=== PATIENT | female | born 1975 | race Caucasian/White ===

== ENCOUNTER → 2016-11-20 | Outpatient (CLI) | payer SELFPAY ==
[~2016-11-20] MED LIST: CLARITIN10 M3 PO; HEARTBURN150 MG PO; LEVOTHYROXINE150 MCG PO; TUMS500 MG PO
== END | disposition home or self-care (01) ==
LOC: CBAR 16:18
DX: Z01.818 Encounter for other preprocedural examination (principal); E66.9 Obesity, unspecified
CPT/HCPCS: G0463

== ENCOUNTER → 2016-12-13 | Outpatient (CLI) | payer SELFPAY | END | disposition home or self-care (01) | LOC: CBAR 07:58 | DX: Z01.818 Encounter for other preprocedural examination (principal); E66.01 Morbid (severe) obesity due to excess calories | CPT/HCPCS: G0463 ==

== ENCOUNTER → 2017-01-08 | Outpatient (CLI) | payer SELFPAY | END | disposition home or self-care (01) | LOC: CBAR 15:42 | DX: Z01.818 Encounter for other preprocedural examination (principal); E66.01 Morbid (severe) obesity due to excess calories | CPT/HCPCS: G0463 ==

== ENCOUNTER → 2017-02-05 | Outpatient (CLI) | payer SELFPAY | END | disposition home or self-care (01) | LOC: CBAR 08:11 | DX: E66.01 Morbid (severe) obesity due to excess calories (principal) | CPT/HCPCS: G0463 ==

== ENCOUNTER → 2017-03-06 | Outpatient (CLI) | payer SELFPAY | END | disposition home or self-care (01) | LOC: CBAR 03-05 11:45 | DX: Z01.818 Encounter for other preprocedural examination (principal); E66.01 Morbid (severe) obesity due to excess calories | CPT/HCPCS: G0463 ==

== ENCOUNTER → 2017-04-02 | Outpatient (CLI) | payer SELFPAY | END | disposition home or self-care (01) | LOC: CBAR 06:15 | DX: Z01.818 Encounter for other preprocedural examination (principal); E66.01 Morbid (severe) obesity due to excess calories | CPT/HCPCS: G0463 ==

== ENCOUNTER → 2017-04-26 | Outpatient (CLI) | payer BC ==
--- NOTE | ~2017-04-26 | CR97 ---
[facility] A Service [facility] RADIOLOGY TEXT RESULTS PATIENT: ROBYN DAVIS LOCATION: [facility] : [birth year] UNIT #: [id number] AGE: [address]: Goyo Zheng III, MD SEX: F ORDER DR: [id number] [place] [id number] [facility]. [place], [place] [address] [id number] O MR#: [id number] Acc #: [id number] NAME: ROBYN DAVIS : 1975 SEX: F STUDY DATE/TIME: 04/26/2017 11:49 UNIT: [facility] ROOM: STUDY DESCRIPTION: CR Esophagram Attending Physician: Goyo Zheng III, M.D. Referring Physician: Goyo Zheng III, M.D. Ordering Physician: Goyo Zheng III, M.D. Primary Care Physician: Ramo Goldberg M.D. MEDICAL IMAGING REPORT This report is preliminary unless electronic signature is present EXAM Esophagram, 04/26/2017. INDICATIONS 42-year-old female presenting for preop evaluation for Lap-Band placement. Shortness of air. Morbid obesity. Symptoms began today. TECHNIQUE Spot fluoroscopic views of the esophagus were obtained in various projections after the patient ingested gas crystals and thick and thin liquid barium. COMPARISON We have no comparisons. FINDINGS Notes indicate 51 images from the procedure were saved to the [employer] system. 0.8 minutes of fluoroscopy time was used in the case. The esophagus demonstrates an unremarkable primary stripping wave. No significant secondary or tertiary contractions identified. No focal esophageal mass or mucosal abnormality. There is a small sliding hiatal hernia best demonstrated on prone oblique images. No significant associated reflux. IMPRESSION 1. Small sliding hiatal hernia without significant associated gastroesophageal reflux or reflux associated stricture. 2. The examination is otherwise negative. 3. Notes indicate 51 images were saved from the procedure to the [employer] system. 0.8 minutes of fluoroscopy time from the case noted. [facility] A Service [facility] RADIOLOGY TEXT RESULTS PATIENT: ROBYN DAVIS LOCATION: [facility] : 71 UNIT #: [id number] AGE: [address]: Goyo Zheng III, MD SEX: F ORDER DR: Dictated by... Derrick Baeza M.D. THIS IS AN ELECTRONICALLY VERIFIED REPORT Derrick Baeza M.D. at 04/29/2017 3:26 PM SMITHA/jamia TD: 04/26/2017 20:51 JOB #: [id number] MEDICAL IMAGING REPORT Page 1 of 1 COPY
--- NOTE | ~2017-04-26 | CR63 ---
[facility] A Service of [facility] & [facility] RADIOLOGY TEXT RESULTS PATIENT: ROBYN DAVIS A LOCATION: [facility] : 71 UNIT #: [id number] AGE: [address]: Goyo Zheng III, MD SEX: F ORDER DR: [id number] [facility] [address]. [place], [place] [address] [id number] O MR#: [id number] Acc #: [id number] NAME: ROBYN DAVIS : 1975 SEX: F STUDY DATE/TIME: 04/26/2017 8:36 UNIT: [facility] ROOM: STUDY DESCRIPTION: CR Chest 2 View Attending Physician: Goyo Zheng III, M.D. Referring Physician: Goyo Zheng III, M.D. Ordering Physician: Goyo Zheng III, M.D. Primary Care Physician: Ramo Goldberg M.D. MEDICAL IMAGING REPORT This report is preliminary unless electronic signature is present EXAM Chest, 04/26/2017, [facility]. HISTORY 42-year-old female preop clearance for laparoscopic adjustable gastric band placement and possible paraesophageal hernia repair. Short of air, morbid obesity. COMPARISON None FINDINGS Two-view chest demonstrates normal cardiac size and configuration. Hilar structures and mediastinal contours are preserved. Bilateral lungs are expanded and clear. IMPRESSION Negative chest. Large body habitus. Dictated by... Keyshawn Mata M.D. THIS IS AN ELECTRONICALLY VERIFIED REPORT Keyshawn Mata M.D. at 04/26/2017 1:56 PM CRISTINA/arlen TD: 04/26/2017 11:40 JOB #: [id number] MEDICAL IMAGING REPORT Page 1 of 1 COPY
--- NOTE | ~2017-04-26 | EKG ---
PATIENT: ORBYN DAVIS UNIT #: [id number] Ventricular Rate: 68 BPM Atrial Rate: 68 BPM P-R Interval: 166 ms QRS Duration: 88 ms Q-T Interval: 390 ms QTC Calculation(Bezet): 414 ms P Pierce: 26 degrees Calculated R Pierce: 28 degrees Calculated T Pierce: 34 degrees Diagnosis Line: Normal sinus rhythm with sinus arrhythmia Diagnosis Line: Normal ECG Diagnosis Line: Diagnosis Line: Confirmed by SHIRA ARTHUR MD ([id number]) on 04/27/2017 Diagnosis Line: 8:34:07 AM INTERPRETING MD: SANDHYA GOOD
[2017-04-26 09:50] LABS: HEMATOCRIT 40.1 % (35.0-45.0); HEMOGLOBIN 13.7 gm/dL (12.0-16.0); MEAN CELL VOLUME 88.7 FL (83-96); MEAN CORPUSCULAR HEMOGLOBIN 30.2 PG (28-34); MEAN CORPUSCULAR HGB CONC 34.1 g/dL (30-36); MEAN PLATELET VOLUME 8.2 FL (6.5-11.5); RED BLOOD COUNT 4.52 X10e (3.90-5.30); WHITE BLOOD COUNT 8.9 X10e3 (4.0-10.5)
[2017-04-26 10:42] LABS: ALBUMIN SERUM 3.9 g/dL (3.5-5.0); BILIRUBIN,TOTAL 0.7 mg/dL (0.2-2.0); BUN/CREATININE RATIO 17.77; CREATININE SERUM 0.9 mg/dL (0.6-1.4); GLOM FILT RATE Estimated 77.8 mL/min (>60); POTASSIUM 4.4 mmol/L (3.5-5.1); PROTEIN TOTAL SERUM 6.9 g/dL (6.0-8.3)
== END | disposition home or self-care (01) ==
LOC: CRAD 08:00 → CAMB 08:30
PROVIDERS: Surgery
DX: Z01.818 Encounter for other preprocedural examination (principal); K44.9 Diaphragmatic hernia without obstruction or gangrene
CPT/HCPCS: 36415; 71020; 74220; 80053; 80061; 84443; 85027; 93005

== ENCOUNTER → 2017-05-08 | Day surgery (SDC) | payer BC ==
--- NOTE | ~2017-05-08 | OR ---
Unit #: [id number] #: [id number] Patient: ROBYN DAVIS [id number] [facility] [address] [facility]. [place], [place] [address] [id number] O MR#: [id number] NAME: ROBYN DAVIS ROOM: Date of Procedure: 05/08/2017 Admission Date: 05/08/2017 Surgeon: Goyo Zheng III, M.D. : 1975 Attending Physician: Goyo Zheng III, M.D. Primary Care Physician: Ramo Goldberg M.D. OPERATIVE REPORT PREOPERATIVE DIAGNOSIS Chronic morbid obesity. POSTOPERATIVE DIAGNOSIS Chronic morbid obesity. SECONDARY DIAGNOSIS Anterior paraesophageal hernia. PROCEDURE PERFORMED Laparoscopic adjustable gastric banding (AP standard with low-profile port) and laparoscopic paraesophageal hernia repair. SPECIAL PROJECTS MANAGER Dr. Abran Day. SPECIMENS None. COMPLICATIONS None apparent. ESTIMATED BLOOD LOSS Minimal. ANESTHESIA General endotracheal tube anesthesia. INDICATIONS FOR PROCEDURE This is a 42-year-old lady, who has chronic morbid obesity with a BMI of 47 and no major associated comorbidities. She has been through the bariatric program at [facility] and understands the risks and benefits of the procedure. DESCRIPTION OF PROCEDURE After consent was obtained, including the risks and benefits of slippage, erosion, port dysfunction, and possible failure of weight loss due to noncompliance, the patient was taken to the operating room and placed in the supine position. General anesthetic was administered and the abdomen was prepped and draped in standard surgical fashion. I began by making a 2 cm incision just above and to the left of the Unit #: [id number] #: [id number] Patient: ROBYN DAVIS umbilicus. I used a Visiport to enter the peritoneal cavity without any difficulty. C02 pneumoperitoneum was then established. Next, I placed a 5 mm port in the right upper quadrant, a 5 mm Ronal liver retractor in the subxiphoid region to provide exposure of the gastroesophageal junction. Next, a 10 mm port was placed in the left upper quadrant and a 5 mm port was placed in the left lateral subcostal region. I began by performing an examination of the GE junction to evaluate for a hiatal hernia. We then scored the peritoneal attachments overlying the angle of His. I then opened up the clear space in the gastrohepatic ligament, and then using 2 blunt graspers, I identified the small fat pad crossing over the right crura. I swept the fat anterior to the crura off the crura and using the pars flaccida, I created a retrogastric tunnel where the blunt grasper exited at the angle of His. Once I had made this tunnel safely, I then inserted an Allergan AP band into the abdominal cavity. This adjustable gastric band was then place around the upper part of the stomach and fastened and buckled anteriorly. We then tacked the lateral fundus over the band to the proximal pouch with 2 interrupted 0 Ethibond sutures. I then used a third stitch to imbricate the excess anterior stomach by going from the lesser curvature up towards where the last stitch was placed. We then had excellent hemostasis. I removed the Ronal liver retractor. We then removed the port tubing through the initial port incision. The rest of the ports were removed, and the pneumoperitoneum was released. I then left a small tail on the tubing. We then attached the port to the excess band tubing. We placed a piece of Prolene mesh along the back side of the port and used a Prolene stitch to anchor this mesh in place. We then trimmed the excess mesh so that just a small footprint of mesh was in place behind the port. I then inserted the tubing back into the abdominal cavity, and we placed the port into a small pocket that was made just inferior to where our initial port incision was made. The mesh was in direct contact with the fascia, and this will scar in place to hold the port in place. We then injected all the port sites with 0.25% plain Marcaine, and I reapproximated the skin edges with interrupted 4-0 Vicryl subcuticular sutures. Steri-strips were then applied. The patient tolerated the procedure without any problems and returned to the recovery room in stable condition. ADDENDUM After exposure of the GE junction, the patient was noted to have a small to medium size anterior paraesophageal hernia. I scored the phrenoesophageal ligament, reduced the hernia defect and after identifying both the right and left crura, I reapproximated the defect with an interrupted 0 Ethibond [id number]-[id number] suture. I then proceeded with the case as listed above. Dictated by... Goyo Zheng III, M.D. VCL/elfego TD: 05/09/2017 16:22 JOB #: [id number] Unit #: [id number] #: [id number] Patient: ROBYN DAVIS OPERATIVE REPORT Page 1 of 1 X Goyo Zheng III, MD PROCEDURE OPERATIVE NOTE
--- NOTE | ~2017-05-08 | CR7 ---
[facility] A Service of [facility] RADIOLOGY TEXT RESULTS PATIENT: ROBYN DAVIS LOCATION: [facility] : 71 UNIT #: [id number] AGE: [address]: Goyo Zheng III, MD SEX: F ORDER DR: [id number] [facility] [address] [facility]. [place], [place] [address] [id number] O MR#: [id number] Acc #: [id number] NAME: ROBYN DAVIS : 1975 SEX: F STUDY DATE/TIME: 05/08/2017 8:57 UNIT: [facility] ROOM: STUDY DESCRIPTION: CR Abdomen Single AP View Attending Physician: Goyo Zheng III, M.D. Ordering Physician: Goyo Zheng III, M.D. Primary Care Physician: Ramo Goldberg M.D. MEDICAL IMAGING REPORT This report is preliminary unless electronic signature is present EXAM AP abdomen, 05/08/2017. HISTORY Abdominal pain status post Lap-Band placement today. COMPARISON None FINDINGS Gastric band device has been placed, located at or just slightly below the level of the esophagogastric junction. Accurate phi angle measurements are difficult to obtain, as the patient is rotated toward the right. The phi angle approximates roughly 52 degrees. The insufflation tube extends to the left lower quadrant of the abdomen where the access port is situated. No gross free air is identified. Cholecystectomy. Nonobstructive bowel gas pattern. Imaged lung bases appear clear. IMPRESSION Gastric band device appears grossly appropriately positioned, allowing for patient rotation toward the right, with estimated phi angle of 52 degrees. Dictated by... Marcy Bueno M.D. THIS IS AN ELECTRONICALLY VERIFIED REPORT Marcy Bueno M.D. at 05/09/2017 12:09 PM Celena TD: 05/08/2017 12:19 JOB #: [id number] [facility] A Service of [facility] RADIOLOGY TEXT RESULTS PATIENT: ROBYN DAVIS LOCATION: [facility] #: [id number] : [birth year] UNIT #: [id number] AGE: [address]: Goyo Zheng III, MD SEX: F ORDER DR: MEDICAL IMAGING REPORT Page 1 of 1 COPY
== END | disposition home or self-care (01) ==
LOC: CSUR 05:47
DX: E66.01 Morbid (severe) obesity due to excess calories (principal); K44.9 Diaphragmatic hernia without obstruction or gangrene; E89.0 Postprocedural hypothyroidism; K21.9 Gastro-esophageal reflux disease without esophagitis; Z68.42 Body mass index [BMI] 45.0-49.9, adult; Z88.8 Allergy status to other drugs, medicaments and biological substances; Z79.899 Other long term (current) drug therapy; Z90.49 Acquired absence of other specified parts of digestive tract; Z98.890 Other specified postprocedural states
CPT/HCPCS: 74000; 84703; C1781; J0330; J0690; J1100; J1650; J1885; J2250; J2405; J2710; J3010